=== PATIENT | female | born 1990 | race Caucasian/White ===

== ENCOUNTER → 2018-09-04 | Outpatient (CLI) | payer BC ==
--- NOTE | 2018-09-04 19:15 | REP ---
Clinical: Pain. Technique: AP, lateral, bilateral oblique views of the right and left foot. Findings: Osseous structures and joint spaces appear relatively symmetric and normal for age. Lateral view suggests pes planus to the right arch. No acute fracture or dislocation. No subcutaneous emphysema or radiodense foreign body. Impression: Right pes planus Electronically Signed by Jermaine Eng MD 09/04/2018 07:07 P
== END ==
LOC: M RAD 15:31
PROVIDERS: ATTEND Physician Assistant
DX: M21.41 Flat foot [pes planus] (acquired), right foot (principal)

== ENCOUNTER 2018-10-02 15:58 | Outpatient (RCR) | payer BC | END 2018-10-17 | LOC: M PT 15:58 | PROVIDERS: ATTEND Physician Assistant | DX: M21.42 Flat foot [pes planus] (acquired), left foot (principal); M76.822 Posterior tibial tendinitis, left leg; M76.821 Posterior tibial tendinitis, right leg ==

== ENCOUNTER → 2019-07-07 | Outpatient (CLI) | payer BC | LOC: M LAB 12:08 | PROVIDERS: ATTEND Obstetrics & Gynecology | DX: N91.2 Amenorrhea, unspecified (principal) ==

== ENCOUNTER → 2019-07-14 | Outpatient (CLI) | payer BC | LOC: M LAB 11:59 | PROVIDERS: ATTEND Obstetrics & Gynecology | DX: N91.2 Amenorrhea, unspecified (principal) ==

== ENCOUNTER → 2019-07-16 | Outpatient (CLI) | payer BC | LOC: M LAB 11:48 | PROVIDERS: ATTEND Obstetrics & Gynecology | DX: N91.2 Amenorrhea, unspecified (principal) ==

== ENCOUNTER → 2019-11-06 | Outpatient (CLI) | payer BC ==
--- NOTE | 2019-11-06 12:15 | REP ---
Clinical: Anatomical evaluation. Comparison: None . Findings: Examination demonstrates a single live intrauterine in cephalic presentation. motion is identified by technologist. Placenta is noted the posterior and grade zero without evidence for placenta previa or abruption. Amniotic fluid volume is normal. Cervix measures 4.2 cm in length and appears closed. No evidence for nuchal cord. Gestational age by LMP 21 weeks 3 days with MAIRA 03/15/2020 . Gestational age by current measurements 20 weeks five the with MAIRA 03/20/2020 . FHR equals 141 beats per minute. BPD 4.7 cm 20 weeks 1 day HC 18.2 cm 20 weeks 4 days AC 16.3 cm 21 weeks 3 days FL 3.4 cm 20 weeks 5 days HL 3.1 cm 20 weeks 3 days HC/AC ratio 1.11 Estimated weight 392 grams ( 33rd percentile). Anatomical assessment demonstrates normal structures including cranium, choroid plexus, cavum, cerebellum/posterior fossa, facial features, lungs, four-chamber heart/ventricular outflow tracts, diaphragm, stomach, cord insertion/three-vessel cord, kidneys/bladder, spine, and extremities. Impression: Single live intrauterine in cephalic presentation demonstrating appropriate oval growth. 2. Anatomical assessment is complete and normal. Electronically Signed by Jermaine Eng MD 11/06/2019 12:05 P
== END ==
LOC: M RAD 10:44
PROVIDERS: ATTEND Obstetrics & Gynecology
DX: Z34.90 Encounter for supervision of normal pregnancy, unspecified, unspecified trimester (principal)

== ENCOUNTER → 2021-01-07 | Outpatient (CLI) | payer OTHER ==
[2021-01-07 14:48] LABS: THYROID PEROXIDASE ANTIBODY > 1300.0 U/ML (<60.0); THYROXINE (T4) 7.3 UG/DL (4.5-12.0)
== END ==
LOC: M LAB 13:51
PROVIDERS: ATTEND Obstetrics & Gynecology Obstetrics
DX: E03.9 Hypothyroidism, unspecified (principal)

== ENCOUNTER → 2021-05-25 | Outpatient (CLI) | payer OTHER ==
[2021-05-25 16:49] LABS: HEMATOCRIT 35.8 % (36.0-47.0); HEMOGLOBIN 12.2 g/dl (12.0-15.5); MEAN CORPUSCULAR HEMOGLOBIN 30.4 pg (27.0-33.0); MEAN CORPUSCULAR HGB CONC 34.1 g/dl (32.0-36.5); MEAN CORPUSCULAR VOLUME 89.3 fl (80.0-96.0); PLATELET COUNT, AUTOMATED 302 10^3/uL (150-450); RED BLOOD COUNT 4.01 10^6/uL (4.00-5.40); WHITE BLOOD COUNT 9.8 10^3/uL (4.0-10.0)
[2021-05-25 16:59] LABS: APPEARANCE, URINE CLEAR (CLEAR); BACTERIA, URINE AUTO NEGATIVE (NEGATIVE); BILIRUBIN, URINE AUTO NEGATIVE (NEGATIVE); BLOOD, URINE BLOOD NEGATIVE (NEGATIVE); COLOR, URINE YELLOW (YELLOW); GLUCOSE, URINE (UA) AUTO NEGATIVE (NEGATIVE); KETONE, URINE AUTO NEGATIVE (NEGATIVE); LEUKOCYTE ESTERASE, URINE AUTO NEGATIVE (NEGATIVE); MUCUS, URINE SMALL (NEGATIVE); NITRITE, URINE AUTO NEGATIVE (NEGATIVE); PROTEIN, URINE AUTO NEGATIVE (NEGATIVE); RBC, URINE AUTO 0 /HPF (0-3); SPECIFIC GRAVITY URINE AUTO 1.024 (1.002-1.035); SQUAMOUS EPITHELIAL CELL UR AU 0 /HPF (0-6); UROBILINOGEN, URINE AUTO 0.2 mg/dL (0.0-2.0); WBC, URINE AUTO 1 /HPF (0-3)
[2021-05-25 17:14] LABS: FREE T3 2.7 PG/ML (2.2-4.0); FREE T4 1.23 NG/DL (0.76-1.46); THYROXINE (T4) 14.1 UG/DL (4.5-12.0)
[2021-05-25 17:27] LABS: HEPATITIS B SURFACE ANTIGEN NEGATIVE (NEGATIVE)
[2021-05-25 17:55] LABS: HEPATITIS C VIRUS ABY INDEX < 0.0 INDEX (<0.8); HIV 1&2 SCREEN CENTAUR NEGATIVE (NEGATIVE)
== END ==
LOC: M LAB 15:37
PROVIDERS: ATTEND Nurse Practitioner Adult Health
DX: Z34.81 Encounter for supervision of other normal pregnancy, first trimester (principal)

== ENCOUNTER → 2021-06-14 | Outpatient (CLI) | payer OTHER ==
--- NOTE | 2021-06-14 16:46 | REP ---
INDICATION: ANATOMY COMPARISON: None. TECHNIQUE: Transabdominal obstetrical ultrasound with color Doppler evaluation. FINDINGS: Examination demonstrates a single live intrauterine in breech presentation. motion is identified by technologist. Placenta is noted posterior and grade 0 without evidence for placenta previa or abruption. Amniotic fluid volume is normal. Cervix measures 5.4 cm in length and appears closed.. Selected gestational age: 21 weeks 0 days with MAIRA 10/25/2021. Gestational age by current measurements 20 weeks 3 days with MAIRA 10/29/2021. FHR equals 145 beats per minute. BPD: 4.5 cm at 19 weeks 4 days HC: 18.1 cm at 20 weeks 4 days AC: 14.5 cm at 19 weeks 6 days FL: 3.6 cm at 21 weeks 2 days HL: 3.2 cm at 20 weeks 5 days HC/AC: 1.25 Estimated weight 355 grams (20thpercentile). Anatomical assessment demonstrates normal structures including cranium, choroid plexus, cavum, cerebellum/posterior fossa, facial features, lungs, four-chamber heart, diaphragm, stomach, cord insertion/three-vessel cord, kidneys/bladder, spine, and extremities. Limited evaluation of the facial profile and cardiac ventricular outflow tracts due to positioning. IMPRESSION: Single live intrauterine in breech presentation demonstrating appropriate estimated weight. Anatomical limitations as noted above may warrant follow-up. Remainder of the anatomical assessment is complete and normal. <Electronically signed by Jermaine Eng > 06/14/21 [id number]
== END ==
LOC: M RAD 15:57
PROVIDERS: ATTEND Obstetrics & Gynecology Obstetrics
DX: Z36.9 Encounter for antenatal screening, unspecified (principal); Z3A.20 20 weeks gestation of pregnancy

== ENCOUNTER → 2021-06-14 | Outpatient (CLI) | payer OTHER ==
--- NOTE | 2021-06-14 16:54 | REP ---
INDICATION: GOITER COMPARISON: None. TECHNIQUE: Hull scale and color evaluation of the thyroid gland using the linear high frequency transducer. FINDINGS: The thyroid gland is heterogeneous and mildly prominent in size. Right thyroid lobe measures 4.3 x 2.1 x 1.7 cm and includes 1.3 x 0.8 x 1.0 cm heterogeneous isoechoic midpole nodule. Isthmus measures 4.0 mm in width. Left thyroid lobe measures 4.4 x 1.6 x 1.3 cm and includes vague 1.0 x 0.7 x 0.7 cm heterogeneous midpole isoechoic nodule and 8 x 4 x 7 mm lower pole isoechoic nodule. IMPRESSION: Heterogeneous thyroid gland with suspected isoechoic nodules relatively indeterminate. Consider 6-9 month follow-up examination. <Electronically signed by Jermaine Eng > 06/14/21 [id number]
== END ==
LOC: M RAD 15:53
PROVIDERS: ATTEND Internal Medicine Endocrinology, Diabetes & Metabolism
DX: E06.3 Autoimmune thyroiditis (principal); E03.8 Other specified hypothyroidism

== ENCOUNTER → 2021-07-15 | Outpatient (CLI) | payer OTHER ==
--- NOTE | 2021-07-15 16:56 | REP ---
INDICATION: ENCNTR FOR SUPRVSN OF NORMAL FIRST PREG, SECOND TRIMESTER. COMPARISON: 06/14/2021. TECHNIQUE: Real-time sonographic evaluation of the gravid uterus performed. FINDINGS: Estimated gestational age is25 weeks 3 days, EDC 10/25/2021. Today's measurements indicate appropriate growth. Presentation: Cephalic Placenta posterior, grade 0, without evidence of placenta previa. heart rate is recorded at 150 beats per minute. Amniotic fluid is subjectively normal. Closed cervical length is measured at 3.5 cm. Biometry chart: BPD: 62 mm, 25 weeks 1 days, 46th percentile. HC: 238 mm, 25 weeks 6 days, 59th percentile AC: 201 mm, 24 weeks 5 days, 36th percentile Femur length: 52 mm, 27 weeks 5 days, over 95th percentile HC to AC ratio: 1.18, normal range 1.01-1.20. Estimated weight: 872g, 64th percentile. anatomy: Cranium: Grossly normal Lateral Ventricles/Choroid Plexus: Grossly normal Posterior Fossa/Cerebellum: Grossly normal Nose/lips/profile: Grossly normal Four chamber heart: Grossly normal Right ventricular outflow tract: Grossly normal Left ventricular outflow tract: Grossly normal Left-sided stomach: Grossly normal Kidneys: Grossly normal Bladder: Grossly normal Cord Insertion: Grossly normal 3 vessel cord: Grossly normal Spine: Grossly normal IMPRESSION: Viable single intrauterine gestation as above. <Electronically signed by Rishabh Hull > 07/15/21 [id number]
== END ==
LOC: M RAD 15:19
PROVIDERS: ATTEND Obstetrics & Gynecology
DX: Z34.02 Encounter for supervision of normal first pregnancy, second trimester (principal); Z3A.25 25 weeks gestation of pregnancy

== ENCOUNTER → 2021-07-30 | Outpatient (CLI) | payer OTHER ==
[2021-07-30 10:01] LABS: HEMATOCRIT 37.1 % (36.0-47.0); HEMOGLOBIN 12.3 g/dl (12.0-15.5); MEAN CORPUSCULAR HEMOGLOBIN 30.7 pg (27.0-33.0); MEAN CORPUSCULAR HGB CONC 33.2 g/dl (32.0-36.5); MEAN CORPUSCULAR VOLUME 92.5 fl (80.0-96.0); PLATELET COUNT, AUTOMATED 324 10^3/uL (150-450); RED BLOOD COUNT 4.01 10^6/uL (4.00-5.40); WHITE BLOOD COUNT 10.8 10^3/uL (4.0-10.0)
[2021-07-30 10:46] LABS: FREE T4 1.2 NG/DL (0.76-1.46); THYROID STIMULATING HORMONE 1.39 uIU/ML (0.358-3.740)
[2021-08-01 11:15] LABS: TOTAL 25(OH) VITAMIN D 21.4 NG/ML (30.0-100.0)
== END ==
LOC: M LAB 09:19
PROVIDERS: ATTEND Obstetrics & Gynecology
DX: Z36.9 Encounter for antenatal screening, unspecified (principal); Z3A.00 Weeks of gestation of pregnancy not specified

== ENCOUNTER 2021-08-15 06:55 | Outpatient (RCR) | END 2021-08-15 15:00 | disposition home or self-care (01) | LOC: M EMP 06:55 | PROVIDERS: ATTEND Pediatrics | DX: Z11.52 Encounter for screening for COVID-19 (principal) ==

== ENCOUNTER → 2021-09-21 | Outpatient (CLI) | payer OTHER ==
[2021-09-21 15:44] LABS: FREE T4 0.91 NG/DL (0.76-1.46); THYROID STIMULATING HORMONE 1.8 uIU/ML (0.358-3.740)
== END ==
LOC: M LAB 14:51
PROVIDERS: ATTEND Obstetrics & Gynecology Obstetrics
DX: O99.283 Endocrine, nutritional and metabolic diseases complicating pregnancy, third trimester (principal); Z3A.00 Weeks of gestation of pregnancy not specified

== ENCOUNTER → 2021-10-04 | Outpatient (CLI) | payer OTHER | LOC: M RAD 09:48 | PROVIDERS: ATTEND Obstetrics & Gynecology | DX: Z36.2 Encounter for other antenatal screening follow-up (principal); Z3A.32 32 weeks gestation of pregnancy ==

== ENCOUNTER 2021-11-08 08:05 | Outpatient (RCR) | END 2021-11-14 08:00 | disposition home or self-care (01) | LOC: M EMP 08:05 | PROVIDERS: ATTEND Pediatrics | DX: Z20.822 Contact with and (suspected) exposure to COVID-19 (principal) ==

== ENCOUNTER → 2022-08-24 | Outpatient (CLI) | payer OTHER ==
[2022-08-24 16:21] LABS: FREE T4 1.42 NG/DL (0.89-1.76)
[2022-08-24 16:22] LABS: THYROID STIMULATING HORMONE 0.889 uIU/ML (0.55-4.78)
== END ==
LOC: M LAB 15:13
PROVIDERS: ATTEND Nurse Practitioner
DX: E03.9 Hypothyroidism, unspecified (principal)

== ENCOUNTER → 2023-11-06 | Outpatient (CLI) | payer BC | LOC: M EKG 17:35 | PROVIDERS: ATTEND Nurse Practitioner Family | DX: R07.89 Other chest pain (principal); I44.4 Left anterior fascicular block ==

== ENCOUNTER 2024-10-06 09:12 | Emergency (ER) | payer BC ==
[~2024-10-06] VITALS: Ht 157.5 cm; Wt 77.3 kg
[2024-10-06 09:15] VITALS: BP 154/95; TEMP 98.2; O2SAT 96
[2024-10-06] MEDS ORDERED: DOXY100C82 PO (10:38)
[2024-10-06] MEDS: DOXYCYCLINE HYCLATE 100MG TABLET PO ONE (10:44)
== END 2024-10-06 10:53 | disposition home or self-care (01) ==
LOC: M ED 09:12
DX: J18.1 Lobar pneumonia, unspecified organism (principal); Z79.2 Long term (current) use of antibiotics